=== PATIENT | female | born 1970 | race Caucasian/White ===

== ENCOUNTER 2019-07-19 22:15 | Emergency (ER) | payer SELFPAY ==
[2019-07-19 22:26] VITALS: BP 128/70; PULSE 93
--- NOTE | 2019-07-19 22:59 | EDM.PDOC ---
ED HPI GENERAL MEDICAL PROBLEM - General Chief Complaint: General Stated Complaint: right hand pain/swelling Time Seen by Provider: 07/19/19 22:45 Source of Information: Reports: Patient History Limitations: Reports: No Limitations - History of Present Illness INITIAL COMMENTS - FREE TEXT/NARRATIVE: Patient presents to ER with complaints of right hand pain. She has a large dog that jumped toward the doorway causing her to reinier her hand in to the door frame. She noted immediate pain and swelling. Has "large lump by knuckles now ". Complains of pain with range of motion. Hard to straighten her hand. Onset: Today, Sudden Duration: Minutes: Location: Reports: Upper Extremity, Right Quality: Reports: Throbbing Severity: Severe Improves with: Reports: Cold Therapy Worsens with: Reports: Movement Context: Reports: Trauma Associated Symptoms: Reports: No Other Symptoms Treatments [employer]: Reports: Cold Therapy Right Hand Pain Score (Numeric/FACES): 9 - Related Data Allergies Allergy/AdvReac Type Severity Reaction Status Date / Time Sulfa (Sulfonamide Allergy Anaphylactic Verified 07/19/19 22:20 Antibiotics) Shock Home Meds: Home Meds Albuterol [Ventolin HFA] 2 inh PO ASDIRECTED PRN 07/19/19 [History] Past Medical History Respiratory History: Reports: Asthma, COPD, Pneumonia, Recurrent, Other (See Below) Other Respiratory History: 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 partial hysterectomy Oncologic (Cancer) History: Reports: Cervix - Infectious Disease History Infectious Disease History: Reports: Chicken Pox - Past Surgical History GI Surgical History: Reports: Cholecystectomy Female Surgical History: Reports: Hysterectomy Social & Family History - Family History Family Medical History: Noncontributory - Tobacco Use Smoking Status *Q: Current Every Day Smoker Years of Tobacco use: 39 Packs/Tins Daily: 0.2 - Caffeine Use Caffeine Use: Reports: Coffee - Recreational Drug Use Recreational Drug Use: No Review of Systems - Review of Systems Review Of Systems: Comprehensive ROS is negative, except as noted in HPI. ED EXAM, GENERAL - Physical Exam Exam: See Below Exam Limited By: No Limitations General Appearance: Alert, WD/WN, Mild Distress Extremities: Joint Swelling, Other (Right hand near the 2nd, 3rd MCP joints are noted to be swollen with hematoma present. Tender to palpation. Admits to discomfort with range of motion with his fingers. ) Neurological: Alert, Oriented Skin Exam: Ecchymosis Course - Vital Signs Last Recorded V/S: Last Vital Signs Temp 98.9 F 07/19/19 22:15 Pulse 93 07/19/19 22:15 Resp 18 07/19/19 22:15 BP 128/70 07/19/19 22:15 Pulse Ox 98 07/19/19 22:15 - Orders/Labs/Meds Orders: Active Orders 24 hr Category Date Time Status Hand Comp Min 3V Rt [CR] Stat Exams 07/19/19 22:33 Taken - Re-Assessments/Exams Free Text/Narrative Re-Assessment/Exam: 07/18 Xrays are negative. Joey bandage applied for compression. Departure - Departure Time of Disposition: 22:56 Disposition: Home, Self-Care 01 Condition: Good Clinical Impression: Contusion, hand Qualifiers: Encounter type: initial encounter Laterality: right Qualified Code(s): S60.221A - Contusion of right hand, initial encounter - Discharge Information *PRESCRIPTION DRUG MONITORING PROGRAM REVIEWED*: No *COPY OF PRESCRIPTION DRUG MONITORING REPORT IN PATIENT JUJU: No Instructions: Hand Contusion Referrals: Molly Gold PA-C [Primary Care Provider] - Forms: ED Department Discharge Additional Instructions: 1. Rest 2. Elevate 3. Ice frequently tonight 4. Compression wrap as needed for swelling 5. Aleve 2 tabs twice a day as needed for pain and swelling 6. Follow up if any persisting concerns. Sepsis Event Note - Evaluation Sepsis Screening Result: No Definite Risk - Focused Exam Vital Signs: Vital Signs Temp Pulse Resp BP Pulse Ox 07/19/19 22:15 98.9 F 93 18 128/70 98 Date Exam was Performed: 07/20/19 Time Exam was Performed: 08:20 - My Orders Last 24 Hours: My Active Orders 07/19/19 22:33 Hand Comp Min 3V Rt [CR] Stat - Assessment/Plan Last 24 Hours: My Active Orders 07/19/19 22:33 Hand Comp Min 3V Rt [CR] Stat
== END 2019-07-19 23:05 | disposition home or self-care (01) ==
LOC: SUPCPDRO 22:15 → CC.ED 22:15
DX: S60.221A Contusion of right hand, initial encounter (principal); J43.9 Emphysema, unspecified; J45.909 Unspecified asthma, uncomplicated; F17.210 Nicotine dependence, cigarettes, uncomplicated; Z88.2 Allergy status to sulfonamides; W22.8XXA Striking against or struck by other objects, initial encounter
CPT/HCPCS: 73130-RT; 99283